=== PATIENT | female | born 1975 | race American Indian/Alaskan Native ===

== ENCOUNTER 2022-03-22 19:21 | Emergency (ER) | payer SELFPAY ==
--- NOTE | 2022-03-22 20:27 | XRay Report ---
XR chest routine 2V INDICATION / CLINICAL INFORMATION: COUGH COMPARISON: None available. FINDINGS: SUPPORT DEVICES: None. HEART / MEDIASTINUM: No significant abnormality. LUNGS / PLEURA: Lungs are clear. Costophrenic sulci are sharp. No pneumothorax. ADDITIONAL FINDINGS: No significant additional findings. IMPRESSION: 1. No acute findings. Signer Name: Sunny Ayers MD Signed: 03/22/2022 8:23 PM Workstation Name: [id number]
[2022-03-23 01:21] VITALS: BP 168/94
== END 2022-03-23 02:03 | disposition left against medical advice (07) ==
LOC: ED 19:21
DX: R07.9 Chest pain, unspecified (principal); Z53.21 Procedure and treatment not carried out due to patient leaving prior to being seen by health care provider
CPT/HCPCS: 71046